=== PATIENT | male | born 1955 | race Caucasian/White ===

== ENCOUNTER 2018-07-05 20:46 | Emergency (ER) | payer MEDICARE, SELFPAY ==
[2018-07-05 20:47] VITALS: BP 166/81; PULSE 66; RESP 18
[2018-07-05 20:48] VITALS: BP 166/81; PULSE 68; RESP 18; TEMP 36.8; O2SAT 95; BMI 28.4
--- NOTE | 2018-07-05 21:49 | CT_ITS ---
STUDY: CT BRAIN WITHOUT CONTRAST REASON FOR EXAM: Male, 62 years old. Sudden onset flashing lights in right eye, elevated blood pressure RADIATION DOSAGE (If Supplied By Facility): CTDIvol = ( 44.99 ) mGy, DLP = ( 829.85 ) mGycm TECHNIQUE: Transaxial CT imaging of the brain was performed without administration of intravenous contrast material. Individualized dose optimization techniques were used for this CT. COMPARISON: None. FINDINGS: Normal soft tissue structures. Normal calvarium. Normal size ventricles and extra-axial spaces for the patient's age. Normal white matter tracts of the cerebral hemispheres. Normal basal ganglia and thalami. Normal brainstem. Normal cerebellum. There is no intracranial hemorrhage. There are no findings of an acute ischemic infarction. Normal visualized paranasal sinuses. CT/Brain/Head without Contrast IMPRESSION: No CT evidence of infarct or hemorrhage. Electronically Signed: Dustin Cortes MD at 22:57 EDT Tel , Service support ,
[2018-07-05 22:50] VITALS: BP 155/78; PULSE 65; RESP 14; O2SAT 98
--- NOTE | 2018-07-05 23:15 | ED.VISSUMM ---
- ER Visit Summary Date of Service: 07/05/18 Chief Complaint: Right eye changes History of Present Illness: The patient is a 62 M who is having arcs of colored light and electricity in his right eye towards the temporal side. This started about 2 hours prior to arrival while he was going upstairs. He denies any trauma or any other inciting aunts. He never had this before. It has been associated with floaters, also on that side of his vision. He denies any blurry vision or visual changes. He did not put anything in his eye. Nothing seems to make it better or worse. By the time he presented to the emergency department, the symptoms have resolved. Physical Examination: Blood pressure 166/81. Otherwise vitals normal. Afebrile. Alert and oriented. Sitting comfortably. External exam unremarkable. Skin normal in color without rash. Eyes show normal movement. Pupils unremarkable. Funduscopic exam is limited but otherwise unremarkable. Cranial nerves grossly intact. Normal strength, sensation, and speech. Test Results: CT brain showed no acute findings. Emergency Department Course and Treatment: Symptoms were suspicious for an ocular migraine. The patient was not really having a headache. He does think that sometimes he has may be a mild right-sided headache but nothing significant. No history of migraines or headache disorders. I did speak with Dr. Dutton who is on-call for ophthalmology. She also thought this is likely an ocular migraine. Not consistent with a retinal pathology. She will follow up with him in her office. I did give him retinal precautions. If he does have persistent or increasing amounts of floaters, he should return right away. Return for persistent flashing lights or any other issues. He will watch for fevers, stroke symptoms, or any other issues and return to the emergency department if he has problems. Treatment Plan: As above Disposition: Discharge Impression: 1. Visual disturbance right eye This note was generated with [employer] dictation software. It may contain incorrect words, spelling, and punctuation that were not noted in review of the chart prior to signing ED Disposition - Plan for ED Patient: Chief Complaint: Eye Problem Referrals: Siva Murguia MD [Primary Care Provider] -
[2018-07-05 23:19] VITALS: BP 150/75; PULSE 70; RESP 14; O2SAT 98
--- NOTE | 2018-07-05 23:19 | ED.DCSUM_ITS ---
- ER Visit Summary Date of Service: 07/05/18 Chief Complaint: Right eye changes History of Present Illness: The patient is a 62 M who is having arcs of colored light and electricity in his right eye towards the temporal side. This started about 2 hours prior to arrival while he was going upstairs. He denies any trauma or any other inciting aunts. He never had this before. It has been associated with floaters, also on that side of his vision. He denies any blurry vision or visual changes. He did not put anything in his eye. Nothing seems to make it better or worse. By the time he presented to the emergency department, the symptoms have resolved. Physical Examination: Blood pressure 166/81. Otherwise vitals normal. Afebrile. Alert and oriented. Sitting comfortably. External exam unremarkable. Skin normal in color without rash. Eyes show normal movement. Pupils unremarkable. Funduscopic exam is limited but otherwise unremarkable. Cranial nerves grossly intact. Normal strength, sensation, and speech. Test Results: CT brain showed no acute findings. Emergency Department Course and Treatment: Symptoms were suspicious for an ocular migraine. The patient was not really having a headache. He does think that sometimes he has may be a mild right-sided headache but nothing significant. No history of migraines or headache disorders. I did speak with Dr. Dutton who is on-call for ophthalmology. She also thought this is likely an ocular migraine. Not consistent with a retinal pathology. She will follow up with him in her office. I did give him retinal precautions. If he does have p ersistent or increasing amounts of floaters, he should return right away. Return for persistent flashing lights or any other issues. He will watch for fevers, stroke symptoms, or any other issues and return to the emergency department if he has problems. Treatment Plan: As above Disposition: Discharge Impression: 1. Visual disturbance right eye This note was generated with [employer] dictation software. It may contain incorrect words, spelling, and punctuation that were not noted in review of the chart prior to signing ED Disposition - Plan for ED Patient: Chief Complaint: Eye Problem Referrals: Siva Murguia MD [Primary Care Provider] -
--- NOTE | 2018-07-05 23:19 | ED.DEP ---
ED Disposition - Plan for ED Patient: Chief Complaint: Eye Problem Instructions: What Are Flashes and Floaters? Referrals: Kathe Dutton MD [STAFF PHYSICIAN] -
== END 2018-07-05 23:37 | disposition home or self-care (01) ==
LOC: ED 21:44
PROVIDERS: Emergency Provider Emergency Medicine; Family Provider Family Medicine; PCP Family Medicine
DX: H53.8 Other visual disturbances (principal); F17.210 Nicotine dependence, cigarettes, uncomplicated
CPT/HCPCS: 70450; 99283

== ENCOUNTER → 2018-09-09 14:17 | Outpatient (CLI) | payer MEDICARE, SELFPAY ==
[2018-09-08 16:28] VITALS: BMI 28.5
[2018-09-09 14:48] LABS: Bacteria 0 SEEN /hpf (None Seen); Mucous, Urine 0 SEEN /hpf (<or=2+); Red Blood Cells-Urine 0 SEEN /hpf (0-5); Squamous Epithelial Cells - UA 0 SEEN /hpf (0-5); White Blood Cells 0 SEEN /hpf (0-5)
[2018-09-09 15:53] LABS: Color, Urine Yellow (Yellow); Glucose, Dipstick Normal (Normal); Ketone-Dipstick Negative (Negative); Leukocyte Esterase-Dipstick Negative /ul (Negative); Nitrite-Dipstick Negative (Negative); Occult Blood-Urine Negative /ul (Negative); Protein-Dipstick Negative (Negative); Urine Bilirubin Dipstick Negative (Negative); Urine Clarity Clear (Clear); Urine Urobilinogen Normal (Normal)
[2018-09-09 17:50] LABS: Chlamydia Trachomatis by PCR Negative (Negative); Neisserai gonorrhoeae by PCR Negative (Negative); Probe Check PASS; Sample Adequacy Control PASS; Specimen Processing Control PASS
== END ==
PROVIDERS: Family Provider Family Medicine; PCP Family Medicine; Referring Provider Physician Assistant Surgical; Visit Provider Physician Assistant Surgical
DX: N39.0 Urinary tract infection, site not specified (principal); R30.0 Dysuria
CPT/HCPCS: 81001; 87086; 87491; 87591

== ENCOUNTER → 2018-11-26 11:30 | Outpatient (CLI) | payer MEDICARE, SELFPAY ==
[2018-09-08 16:28] VITALS: BMI 28.5
== END ==
PROVIDERS: Family Provider Family Medicine; PCP Family Medicine; Referring Provider Nurse Practitioner Adult Health; Visit Provider Nurse Practitioner Adult Health
DX: R30.0 Dysuria (principal)
CPT/HCPCS: 87086

== ENCOUNTER → 2019-01-07 10:14 | Outpatient (CLI) | payer MEDICARE, SELFPAY ==
[2018-09-08 16:28] VITALS: BMI 28.5
[2019-01-07 11:34] LABS: PSA,Total - Annual Screen 0.53 ng/mL (0.00-4.00)
== END ==
PROVIDERS: Family Provider Family Medicine; PCP Family Medicine; Referring Provider Nurse Practitioner Adult Health; Visit Provider Nurse Practitioner Adult Health
DX: Z12.5 Encounter for screening for malignant neoplasm of prostate (principal)
CPT/HCPCS: 36415; 84153; G0103

== ENCOUNTER 2021-11-28 11:28 | Outpatient (CLI) | payer MEDICARE, SELFPAY ==
--- NOTE | 2021-11-29 15:17 | STRESSREP ---
Stress Test Report Exercise stress test. 66-year-old male with a history of chest pain. Stress protocol: Resting KG demonstrates normal sinus rhythm with a rate of 65 bpm the right bundle branch block is noted resting blood pressure is 144/82. The patient exercised according to regular Sukhwinder protocol for total duration of 5 minutes completing 2 minutes into stage II of the Sukhwinder protocol the maximum heart rate attained was 1 and 34 bpm which was 87% of maximum predicted. In the maximum workload was 7 metabolic equivalent. At rest there were no ST or T wave change noted to suggest ischemia and at peak exercise upsloping ST changes were noted with did not meet the criteria for ischemia. No clinical angina was noted the test was terminated due to leg fatigue. The peak blood pressure was 222/64 mmHg. No arrhythmias were noted. Conclusion: Exercise stress test with no EKG criteria for ischemia at a moderate workload.
== END 2021-11-28 23:59 | disposition home or self-care (01) ==
LOC: CVS 11:30
PROVIDERS: PCP Family Medicine; Visit Provider Family Medicine
DX: R07.9 Chest pain, unspecified (principal)
CPT/HCPCS: 93017

== ENCOUNTER 2021-12-16 18:58 | Emergency (ER) | payer MEDICARE, SELFPAY ==
[2021-12-16 19:00] VITALS: BP 172/88; PULSE 72; RESP 16; TEMP 36.2; O2SAT 99; BMI 28.9
--- NOTE | 2021-12-16 20:19 | ED.VIS.DENTA ---
HPI History of Present Illness Chief Complaint: Dental Informant: patient Onset/Context/Timing Onset: Days (5) Context: Gradual Onset Timing: Continuous Quality: Aching Location: Right lower molars Worsened by: Eating Relieved by: - (Nothing) Associated Symptoms Assocated Symptom - Dental: Negative for fever, jaw swelling, face swelling, cold sensitivity or hot sensitivity Narrative Narrative: Patient presents with right lower dental pain that has been getting worse over the past 5 days. Patient states a piece of his filling broke off and exposed some of the nerve root. Patient states he feels like he is getting an infection in the area. Patient states he did have an episode of sweats today. Patient denies any fevers or chills however. Patient states his pain is radiating into his throat and neck. Patient denies any difficulty breathing or difficulty swallowing. Patient is unable to get in to see his dentist until December. [facility] Medical History Anxiety Chest pain CPAP (continuous positive airway pressure) dependence Diabetes Diarrhea GERD (gastroesophageal reflux disease) OCD (obsessive compulsive disorder) Skin cancer Thyroid disease Home Medications bupropion HCl 75 mg PO DAILY 06/30/17 [History Last Taken Unknown] esomeprazole magnesium [Nexium] 20 mg PO DAILY 06/30/17 [History Last Taken Unknown] hydroxyzine HCl 50 mg PO TID PRN 06/30/17 [History Last Taken Unknown] levothyroxine 25 mcg PO DAILY 06/30/17 [History Last Taken Unknown] testosterone 20.25 mg/1.25 gram (1.62 %) transdermal gel pump 1 pump TOPICAL DAILY 09/08/18 [History Last Taken Unknown] doxazosin 4 mg PO QHS 12/16/21 [History Last Taken Unknown] empagliflozin [Jardiance] 10 mg PO DAILY 12/16/21 [History Last Taken Unknown] escitalopram oxalate 20 mg PO DAILY 12/16/21 [History Last Taken Unknown] penicillin V potassium 500 mg PO 4X/DAY #40 tab 12/16/21 [Rx Last Taken Unknown] Allergy/AdvReac Type Severity Reaction Status Date / Time Sulfa (Sulfonamide Allergy Hives Verified 11/10/21 16:02 Antibiotics) erythromycin base AdvReac Unknown Unknown Verified 12/16/21 19:04 Social History Smoking Status: Former smoker ROS ROS ED Constitutional Constitutional ED: Reports sweats; Denies chills or fever(s) Eyes Eyes: Denies blurry vision or change in vision ENT ENT ED: Reports sore throat; Denies rhinorrhea Cardiovascular Cardiovascular: Denies chest pain or palpitations Respiratory/Chest Respiratory/Chest: Denies cough or dyspnea Gastrointestinal Gastrointestinal: Denies nausea or vomiting Genitourinary Genitourinary ED: Denies dysuria or hematuria Musculoskeletal Musculoskeletal: Reports neck pain; Denies back pain Integumentary Denies abscess or rash Neurologic Neurologic: Denies headache(s) or weakness Allergic/Immunologic Allergic/Immunologic ED: Denies mouth swelling or urticaria EXAM Physical Exam Const Vital Signs: 12/16/21 19:00 Temperature 97.2 F L Temperature Source Temporal Pulse Rate 72 Respiratory Rate 16 Blood Pressure 172/88 H Blood Pressure Mean 116 Pulse Ox 99 Oxygen Delivery Method Room Air Positive well nourished and well developed General Appearance ED: well developed and NAD HEENT HEENT Narrative: There are multiple dental caries. There is a large dental carry over the right lower first molar. There is some mild gingival edema around this tooth. There is no discharge or drainage. There is no fluctuance. Oropharynx is clear. Airway is patent. Neck is supple. Trachea is midline. No JVD noted. There is no sublingual edema. There is no evidence of Miguel A's angina. Teeth and Gingiva: caries and poor dentition Throat: posterior oropharynx normal Neck no lymphadenopathy and supple General: Negative for anterior neck swelling or submandibular swelling Neuro oriented x3, CN's II-XII intact bilaterally, moves all extremities, no focal motor deficits and no sensory deficits noted Sensorium / Orientation: alert Psych mental status grossly normal MDM MDM MDM Narrative Medical decision making narrative: Patient was given a dose of Pen-Vee K here. Patient was given a prescription for Pen-Vee K. Patient was instructed to take Tylenol or ibuprofen as needed for pain. Patient was instructed to follow-up with his dentist as scheduled. Patient understood and was agreeable with the plan. All questions were answered. Discharge Plan Triage Chief Complaint: Dental ED Provider: Petey Mcgregor Dx/Rx/DC Orders Clinical Impression: Infected dental caries, Odontalgia Instructions: ED Dental Pain, ED Dental Abscess Prescriptions: New penicillin V potassium 500 MG tablet 500 mg PO 4X/DAY Qty: 40 RF: 0 No Action testosterone [AndroGel] 20.25 mg/1.25 gram (1.62 %) gel in metered-dose pump 1 pump TOPICAL DAILY RF: 0 hydroxyzine HCl 50 MG tablet 50 mg PO TID PRN (Reason: Anxiety) RF: 0 levothyroxine 25 MCG tablet 25 mcg PO DAILY RF: 0 esomeprazole magnesium [Nexium] 20 MG capsule 20 mg PO DAILY RF: 0 bupropion HCl 150 MG tablet extended release 24 hr 75 mg PO DAILY RF: 0 doxazosin 4 mg tablet 4 mg PO QHS RF: 0 escitalopram oxalate 20 mg tablet 20 mg PO DAILY RF: 0 Jardiance 10 mg tablet 10 mg PO DAILY RF: 0 Primary Care Provider: Siva Murguia Referrals: Siva Murguia MD [Primary Care Provider] - Dentist,Your [STAFF PHYSICIAN] - [facility] appointment Disposition Disposition: Home, Self Care
[2021-12-16] MEDS: Penicillin Vk 250 MG Tablet 500 MG PO (20:33)
[2021-12-16 20:46] VITALS: BP 152/71; PULSE 74; RESP 16; O2SAT 97
== END 2021-12-16 21:12 | disposition home or self-care (01) ==
PROVIDERS: Emergency Provider Emergency Medicine; PCP Family Medicine; Visit Provider Emergency Medicine
DX: K02.9 Dental caries, unspecified (principal); E11.9 Type 2 diabetes mellitus without complications; Z87.891 Personal history of nicotine dependence; K21.9 Gastro-esophageal reflux disease without esophagitis; F41.9 Anxiety disorder, unspecified; K08.89 Other specified disorders of teeth and supporting structures; E07.9 Disorder of thyroid, unspecified; Z79.899 Other long term (current) drug therapy; Z79.890 Hormone replacement therapy
CPT/HCPCS: 99282

== ENCOUNTER → 2024-02-26 | Outpatient (CLI) | payer MEDICARE, SELFPAY ==
--- NOTE | 2024-02-26 12:58 | STE_ITS ---
Reason For Study: Dyspnea On Exertion Stress Results Protocol: Sukhwinder Protocol Maximum Predicted HR: 152 bpm Target HR: 129 bpm % Maximum Predicted HR: 84 % DurationHeart Rate Stage (mm:ss) (bpm) BP Comment Baseline 58 128/78No Chest Pain Sukhwinder Protocol Stage I 3:00 95 134/72No Chest Pain; Mild Dyspnea Sukhwinder Protocol Stage II 3:00 117 170/74No Chest Pain; Moderate Dyspnea Sukhwinder Protocol Stage III 0:47 127 / No Chest Pain; Moderate Dyspnea; Fatigue Recovery 91 138/72No Chest Pain Stress Duration: 6:47 mm:ss Maximum Stress HR: 127 bpm METS: 8 Baseline Echocardiogram Findings Stress Echo Wall motion Data Resting WM Intermediate WM Stress WM Time Measurements MV dec time: 0.32 sec Doppler Measurements & Calculations MV E max shalom: 89.0 cm/sec Lat Peak E' Shalom: 11.4 cm/sec Med Peak E' Shalom: 8.2 cm/sec MV A max shalom: 76.5 cm/sec E/E' lat: 7.8 E/E' med: 10.9 MV E/A: 1.2 MV dec slope: 200.6 cm/sec2 TR max shalom: 244.7 cm/sec TR max P.9 mmHg ECHO/Stress Test Echo w/o Contrast Interpretation Summary Exercise stress echo. 68-year-old man with a history of dyspnea on exertion. Stress EKG. Resting EKG demonstrates sinus rhythm with a rate of 57 bpm right bundle branch block is noted. Which is incomplete. Patient exercised according to the regular Sukhwinder protocol for total duration of 6 minutes and 47 seconds. Patient completed 47 seconds into stage III of the Br uce protocol. The maximum heart rate attained was 127 bpm which was 83% of max impacted heart rat e the maximum workload was 8.5 METS. The peak exercise blood pressure was 170/74 which was a good blood pressure response to exercise. Rate-pressure product was 19,800. The patient did experie nce mild to moderate dyspnea and fatigue necessitating termination of the test. Stress echocardiogram. The resting echocardiogram demonstrated preserved ejection fraction of 60%. No wall motion abnormalities were noted. The maximum tricuspid peak gradient was 22 mmHg. The peak tricuspid valve gradient post exercise was noted to be 44 mmHg with reversal of E/A-wave ratios . There was thickening of all bronson except for the basal inferior wall with mild reduction suggestive of mild ischemia in this territory. The peak ejection fraction though was noted to be 7 0%. Conclusion: Stress echo with probable mild inferior basal ischemia. Diastolic dysfunction noted with exercise. Ordering Physician: Siva Murguia Referring Physician: Siva Murguia Performed By: Claire Perez, ERNIE, RVT
== END | disposition home or self-care (01) ==
PROVIDERS: PCP Family Medicine; Visit Provider Family Medicine
DX: R06.09 Other forms of dyspnea (principal)
CPT/HCPCS: 93017; 93350